=== PATIENT | female | born 1985 | race Caucasian/White ===

== ENCOUNTER 2016-05-21 14:43 | Emergency (ER) | payer OTHER ==
--- NOTE | 2016-05-21 16:31 | UC ---
Respiratory Complaint HPI - HPI Summary HPI Summary: Nasal congestion & sinus pressure x2 days & dry cough x1 week. has h/o chronic sinusitis. feels liek she needs an abx at this time. was treated at Xmas time with abx and did get full relief. has had sinus pressure on/off since shortly after that. no wheezing, no fevers. h/o childhood asthma. denies . cough is becoming more frequent. - History of Current Complaint Chief Complaint: UCGeneralIllness Stated Complaint: RESPIRATORY,COUGH Time Seen by Provider: 05/21/16 16:22 Hx Last Menstrual Period: 04/21/16 - Allergies/Home Medications Allergies/Adverse Reactions: Allergies Allergy/AdvReac Type Severity Reaction Status Date / Time No Known Allergies Allergy Verified 05/21/16 16:01 Home Medications: Home Medications [id number] W/ APAP [Delsym Cough + Cold D... 0-15-269-325 mg/10Ml] 1 liq PO Q12H PRN 05/21/16 [History Confirmed 05/21/16] Zonisamide(NF) [Zonegran(NF)] 200 mg PO DAILY 05/21/16 [History Confirmed ] guaiFENesin ER TAB [Mucinex*] 600 mg PO BID PRN 05/21/16 [History Confirmed ] PMH/Surg Hx/FS Hx/Imm Hx Previously Healthy: Yes Endocrine History Of: Denies: Diabetes Cardiovascular History Of: Denies: Hypertension, Pacemaker/ICD GI/ History Of: Denies: Renal Disease - Surgical History Surgical History: None - Family History Known Family History: Positive: Respiratory Disease - sister with childhood asthma - Social History Alcohol Use: Daily Alcohol Amount: glass of wine every night Substance Use Type: None Smoking Status (MU): Never Smoked Tobacco Have You Smoked in the Last Year: No - Immunization History Hx Tetanus, Diphtheria Vaccination: Yes Vaccination Up to Date: Yes Review of Systems Constitutional: Negative Skin: Negative Eyes: Negative ENT: Sore Throat, Ear Ache, Nasal Discharge Respiratory: Cough Cardiovascular: Negative Gastrointestinal: Negative Genitourinary: Negative Motor: Negative Neurovascular: Negative Musculoskeletal: Negative Neurological: Negative Psychological: Negative All Other Systems Reviewed And Are Negative: Yes Physical Exam Triage Information Reviewed: Yes Appearance: No Pain Distress, Ill-Appearing - + nasal congestion Vital Signs: Initial Vital Signs Temp 98.9 F 05/21/16 16:04 Pulse 94 05/21/16 16:04 Resp 16 05/21/16 16:04 BP 130/75 05/21/16 16:04 Pulse Ox 100 05/21/16 16:04 Vital Signs Reviewed: Yes Eye Exam: Normal ENT: Positive: Hearing grossly normal, Pharyngeal erythema - +PND, Nasal drainage, Other: - + frontal and maxillary tenderness b/l. Negative: Tonsillar swelling, Tonsillar exudate, Muffled/hoarse voice Dental Exam: Normal Neck exam: Normal Neck: Positive: Supple, Nontender, No Lymphadenopathy Respiratory Exam: Normal Respiratory: Positive: Lungs clear, Normal breath sounds, No respiratory distress, No accessory muscle use Cardiovascular Exam: Normal Cardiovascular: Positive: RRR, No Murmur, Pulses Normal, Brisk Capillary Refill Abdomen Description: Positive: Nontender, Soft Musculoskeletal Exam: Normal Neurological Exam: Normal Psychological Exam: Normal Skin Exam: Normal UC Diagnostic Evaluation - Laboratory O2 Sat by Pulse Oximetry: 100 Respiratory Course/Dx - Differential Dx/Diagnosis Differential Diagnosis/HQI/PQRI: Bronchitis, Lower Resp Infection, Sinusitis Provider Diagnoses: Sinusitis, mild bronchitis Discharge - Discharge Plan Condition: Stable Disposition: HOME Prescriptions: Albuterol HFA INHALER* [Ventolin HFA Inhaler*] 2 puff INH Q4H PRN #1 mdi PRN Reason: Cough Amoxicillin (*) 875 mg PO BID #20 tab Patient Education Materials: Sinusitis (ED), Acute Bronchitis (ED) Referrals: Anna Carroll MD [Primary Care Provider] - 3 Days Additional Instructions: fluids, rest. take a probiotic while on the antibiotic.
[2016-05-21 17:03] VITALS: BP 128/82
== END 2016-05-21 16:57 | disposition home or self-care (01) ==
LOC: UCCORT 14:43
DX: J32.9 Chronic sinusitis, unspecified (principal); J40 Bronchitis, not specified as acute or chronic
CPT/HCPCS: 99212; G0463

== ENCOUNTER 2020-10-02 04:58 | Inpatient (IN) ==
[2020-10-02] MEDS ORDERED: Lactated Ringers 1000 ml BAG 1,000 ML IV ONE (05:53)
[2020-10-02] MEDS ORDERED: Buffered Lidocaine 1% SYRIN 1 ml INTRADERM ONE (05:53)
[2020-10-02] MEDS ORDERED: Witch Hazel PAD JAR TOPICAL PRN (05:56)
[2020-10-02] MEDS ORDERED: Dibucaine 1% OINT 28.35 GM TUBE PR PRN (05:56)
[2020-10-02] MEDS ORDERED: Lactated Ringers 1000 ml BAG 1,000 ML IV SCH ×2 (06:00)
[2020-10-02 06:28] LABS: ABS Basophils 0.1 10^3/ul (0-0.2); ABS Eosinophils 0.1 10^3/ul (0-0.6); ABS Lymphocytes 1.4 10^3/ul (1.0-4.8); ABS Monocytes 0.8 10^3/ul (0-0.8); ABS Neutrophils 11.7 10^3/ul (1.5-7.7); Eosinophil % 0.6 %; Hematocrit 40 % (35-47); Hemoglobin 13.6 g/dL (12.0-16.0); Lymphocyte % 9.7 %; Mean Corpuscular HGB Conc 34 g/dL (31-36); Mean Corpuscular Hemoglobin 31 pg (27-31); Mean Corpuscular Volume 90 fL (80-97); Mean Platelet Volume 9.1 fL (7.4-10.4); Nucleated Red Blood Cells % 0.1; Platelet Count 143 10^3/uL (150-450); Red Blood Count 4.43 10^6 /uL (3.70-4.87); Red Cell Distribution Width 14 % (10-15)
[2020-10-02] MEDS ORDERED: Oxytocin 10 UNITS/ML 1 ML VIAL ONE (10:38)
[2020-10-02] MEDS ORDERED: Lidocaine 1% VIAL 10 MG/ML VIAL ONE (10:38)
[2020-10-02 18:38] LABS: Urine Benzodiazepine Screen None Detected (None Detect); Urine Cannabinoids Screen None Detected (None Detect); Urine Opiates Screen None Detected (None Detect)
[2020-10-03 06:34] LABS: ABS Basophils 0.1 10^3/ul (0-0.2); ABS Eosinophils 0.3 10^3/ul (0-0.6); ABS Lymphocytes 2.3 10^3/ul (1.0-4.8); ABS Monocytes 0.6 10^3/ul (0-0.8); ABS Neutrophils 9.6 10^3/ul (1.5-7.7); Eosinophil % 2.4 %; Hematocrit 36 % (35-47); Hemoglobin 12.1 g/dL (12.0-16.0); Lymphocyte % 17.9 %; Mean Corpuscular HGB Conc 34 g/dL (31-36); Mean Corpuscular Hemoglobin 31 pg (27-31); Mean Corpuscular Volume 91 fL (80-97); Mean Platelet Volume 9.3 fL (7.4-10.4); Platelet Count 129 10^3/uL (150-450); Red Blood Count 3.94 10^6 /uL (3.70-4.87); Red Cell Distribution Width 14 % (10-15); White Blood Count 12.9 10^3/uL (3.5-10.8)
[2020-10-04 08:22] VITALS: BP 127/78
== END 2020-10-04 10:30 | disposition home or self-care (01) | DRG 807 ==
LOC: MCHOBOUT 04:58 → MCHOB 05:05
PROVIDERS: ADMIT Midwife; ATTEND Midwife